=== PATIENT | female | born 1930 | race Caucasian/White ===

== ENCOUNTER 2016-09-26 16:30 | Emergency (ER) | payer MEDICARE, OTHER ==
[2016-09-26 16:47] VITALS: BP 145/56
--- NOTE | 2016-09-26 17:37 | EDM.PDOC ---
ED HPI GENERAL MEDICAL PROBLEM - General Chief Complaint: Respiratory Problem Stated Complaint: BACK AND CHEST PAIN/FEVER/COUGH Time Seen by Provider: 09/26/16 17:07 Source of Information: Reports: Patient, Family (Daughter), RN Notes Reviewed History Limitations: Reports: No Limitations - History of Present Illness INITIAL COMMENTS - FREE TEXT/NARRATIVE: The patient states that she was diagnosed with "walking pneumonia" one week ago , 09/19/2016, per Dr. Bradshaw. Medical records from [facility] indicate that the patient at that time reported a 6 week history of cough productive of yellow-green sputum, worse at night, that caused some rib pain while coughing. She denied fever, chills, and shortness of breath. No wheezing. She had normal oral intake. Rales were heard in the left middle lung field. It does not appear that the a chest radiograph or bloodwork was performed. The patient was diagnosed with atypical pneumonia, and prescribed a Z-Keshav, which the patient states that she took through completion. The patient states that her symptoms initially improved, however, 2 nights ago she felt lightheaded when she sat up, and now complains of a slight dry cough. She has felt hot all day, but has not had a fever or chills. No dyspnea. No nausea or vomiting. The patient states that she has had similar symptoms numerous times in the past. - Related Data Allergies Allergy/AdvReac Type Severity Reaction Status Date / Time Penicillins Allergy Rash Verified 09/26/16 16:47 Home Meds: Home Meds Benzonatate 1 tab PO DAILY PRN 09/26/16 [History] Dextromethorphan Polistirex [Delsym] 1 dose PO ASDIRECTED PRN 09/26/16 [History] HCTZ/Triamterene [Dyazide 25-37.5 MG] 1 tab PO DAILY 09/26/16 [History] Ursodiol 500 mg PO BID 09/26/16 [History] Past Medical History Cardiovascular History: Reports: Hypertension Gastrointestinal History: Reports: Cirrhosis (Primary biliary), GERD Genitourinary History: Reports: Urinary Incontinence (Stress-related), Other ( See Below) (Polycystic kidney disease) Musculoskeletal History: Reports: Osteoarthritis (Bilateral knees) Psychiatric History: Reports: Other (See Below) (Fibromyalgia) Immunologic History: Reports: Other (See Below) (Temporal arteritis) - Past Surgical History HEENT Surgical History: Reports: Cataract Surgery (left), Oral Surgery ([place] teeth extraction), Tonsillectomy Cardiovascular Surgical History: Reports: Other (See Below) (Temporal artery biopsy) GI Surgical History: Reports: Cholecystectomy Social & Family History - Tobacco Use Smoking Status *Q: Never Smoker Second Hand Smoke Exposure: No - Caffeine Use Caffeine Use: Reports: Coffee - Alcohol Use Alcohol Use History: Yes Alcohol Use Frequency: Rarely - Recreational Drug Use Recreational Drug Use: No - Living Situation & Occupation Living situation: Reports: , Alone Occupation: Retired ED ROS GENERAL - Review of Systems Review Of Systems: See Below Constitutional: Reports: No Symptoms HEENT: Reports: No Symptoms Respiratory: Reports: Cough, Sputum (yellow-green). Denies: Shortness of Breath , Wheezing Cardiovascular: Reports: No Symptoms Endocrine: Reports: No Symptoms GI/Abdominal: Reports: No Symptoms : Reports: No Symptoms Musculoskeletal: Reports: No Symptoms Skin: Reports: No Symptoms Neurological: Reports: Dizziness Psychiatric: Reports: No Symptoms Hematologic/Lymphatic: Reports: No Symptoms Immunologic: Reports: No Symptoms ED EXAM, GENERAL - Physical Exam Exam: See Below Exam Limited By: No Limitations General Appearance: Alert, WD/WN, No Apparent Distress Eye Exam: Bilateral Eye: Normal Inspection Ears: Normal External Exam, Hearing Grossly Normal Nose: Normal Inspection, No Blood Throat/Mouth: Normal Inspection, Normal Lips, Normal Voice, No Airway Compromise Head: Atraumatic, Normocephalic Neck: Normal Inspection, Full Range of Motion Respiratory/Chest: No Respiratory Distress, Lungs Clear, Normal Breath Sounds, No Accessory Muscle Use Cardiovascular: Normal Peripheral Pulses, Regular Rate, Rhythm, No Gallop, No JVD, No Murmur, No Rub Peripheral Pulses: 4+: Radial (L), Radial (R) GI/Abdominal: Normal Bowel Sounds, Soft, Non-Tender, No Organomegaly, No Distention, No Abnormal Bruit, No Mass (Female) Exam: Deferred Rectal (Female) Exam: Deferred Back Exam: Normal Inspection, Full Range of Motion, NT Extremities: Normal Inspection, Normal Range of Motion, Non-Tender, Normal Capillary Refill, No Pedal Edema Neurological: Alert, Oriented, Normal Cognition, No Motor/Sensory Deficits Psychiatric: Normal Affect Skin Exam: Warm, Dry, Intact, Normal Color, No Rash Lymphatic: No Adenopathy EKG INTERPRETATION EKG Date: 09/26/16 Time: 16:49 Rhythm: NSR Rate (Beats/Min): 67 [place]: Normal P-Wave: Present QRS: Wide (likely incomplete RBBB) ST-T: Normal QT: Normal Comparison: NA - No Prior EKG Course - Vital Signs Last Recorded V/S: Last Vital Signs Temp 37.1 C 09/26/16 16:42 Pulse 69 09/26/16 16:42 Resp 16 09/26/16 16:42 BP 145/56 H 09/26/16 16:42 Pulse Ox 100 09/26/16 16:42 Orthostatic Blood Pressure [ 153/62 Standing] Orthostatic Blood Pressure [ 169/54 Sitting] Orthostatic Blood Pressure [ 156/53 Supine] - Orders/Labs/Meds Orders: Active Orders 24 hr Category Date Time Status EKG Documentation Completion [RC] STAT Care 09/26/16 16:41 Active Orthostatic Vital Signs [RC] STAT Care 09/26/16 17:30 Active Chest 2V [CR] Stat Exams 09/26/16 17:29 Taken Labs: Laboratory Tests 09/26/16 09/26/16 09/26/16 Range/Units 17:45 17:45 17:45 WBC 6.73 (3.98-10.04) K/mm3 RBC 3.87 L (3.98-5.22) M/mm3 Hgb 12.1 (11.2-15.7) gm/L Hct 36.2 (34.1-44.9) % MCV 93.5 (79.4-94.8) fl MCH 31.3 (25.6-32.2) pg MCHC 33.4 (32.2-35.5) g/dl RDW Std Deviation 42.6 (36.4-46.3) fL Plt Count 209 (182-369) K/mm3 MPV 10.6 (9.4-12.3) fl Neutrophils % (Manual) 67 H (40-60) % Band Neutrophils % 0 (0-10) % Lymphocytes % (Manual) 26 (20-40) % Atypical Lymphs % 0 % Monocytes % (Manual) 4 (2-10) % Eosinophils % (Manual) 2 (0.7-5.8) % Basophils % (Manual) 1 (0.1-1.2) Platelet Estimate Adequate Plt Morphology Comment Normal RBC Morph Comment Normal PT 10.7 (8.0-13.0) SECONDS INR 0.98 APTT 26 (22-36) SECONDS D-Dimer, Quantitative 0.52 (0.19-0.59) mg/L Sodium 141 (136-145) mEq/L Potassium 3.4 L (3.5-5.1) mEq/L Chloride 106 (98-107) mEq/L Carbon Dioxide 26 (21-32) mEq/L Anion Gap 12.4 (5-15) BUN 17 (7-18) mg/dL Creatinine 1.1 H (0.55-1.02) mg/dL Est Cr Clr Drug Dosing 26.37 mL/min Estimated GFR (MDRD) 47 (>60) mL/min BUN/Creatinine Ratio 15.5 (14-18) Glucose 117 H (83-115) mg/dL Calcium 8.8 (8.5-10.1) mg/dL Total Bilirubin 0.4 (0.2-1.0) mg/dL AST 31 (15-37) U/L ALT 23 (14-59) U/L Alkaline Phosphatase 122 H (46-116) U/L Troponin I < 0.017 (0.00-0.056) ng/mL Total Protein 6.3 L (6.4-8.2) g/dl Albumin 3.3 L (3.4-5.0) g/dl Globulin 3.0 gm/dL Albumin/Globulin Ratio 1.1 (1-2) Urine Color (Yellow) Urine Appearance (Clear) Urine pH (5.0-8.0) Ur Specific [place] (1.005-1.030) Urine Protein (Negative) Urine Glucose (UA) (Negative) Urine Ketones (Negative) Urine Occult Blood (Negative) Urine Nitrite (Negative) Urine Bilirubin (Negative) Urine Urobilinogen (0.2-1.0) Ur Leukocyte Esterase (Negative) Urine RBC (0-5) /hpf Urine WBC (0-5) /hpf Ur Epithelial Cells (0-5) /hpf Urine Bacteria (FEW) /hpf Urine Mucus (FEW) /hpf 09/26/ Range/Units 18:10 WBC (3.98-10.04) K/mm3 RBC (3.98-5.22) M/mm3 Hgb (11.2-15.7) gm/L Hct (34.1-44.9) % MCV (79.4-94.8) fl MCH (25.6-32.2) pg MCHC (32.2-35.5) g/dl RDW Std Deviation (36.4-46.3) fL Plt Count (182-369) K/mm3 MPV (9.4-12.3) fl Neutrophils % (Manual) (40-60) % Band Neutrophils % (0-10) % Lymphocytes % (Manual) (20-40) % Atypical Lymphs % % Monocytes % (Manual) (2-10) % Eosinophils % (Manual) (0.7-5.8) % Basophils % (Manual) (0.1-1.2) Platelet Estimate Plt Morphology Comment RBC Morph Comment PT (8.0-13.0) SECONDS INR APTT (22-36) SECONDS D-Dimer, Quantitative (0.19-0.59) mg/L Sodium (136-145) mEq/L Potassium (3.5-5.1) mEq/L Chloride (98-107) mEq/L Carbon Dioxide (21-32) mEq/L Anion Gap (5-15) BUN (7-18) mg/dL Creatinine (0.55-1.02) mg/dL Est Cr Clr Drug Dosing mL/min Estimated GFR (MDRD) (>60) mL/min BUN/Creatinine Ratio (14-18) Glucose (83-115) mg/dL Calcium (8.5-10.1) mg/dL Total Bilirubin (0.2-1.0) mg/dL AST (15-37) U/L ALT (14-59) U/L Alkaline Phosphatase (46-116) U/L Troponin I (0.00-0.056) ng/mL Total Protein (6.4-8.2) g/dl Albumin (3.4-5.0) g/dl Globulin gm/dL Albumin/Globulin Ratio (1-2) Urine Color Yellow (Yellow) Urine Appearance Clear (Clear) Urine pH 6.0 (5.0-8.0) Ur Specific [place] 1.010 (1.005-1.030) Urine Protein Negative (Negative) Urine Glucose (UA) Negative (Negative) Urine Ketones Negative (Negative) Urine Occult Blood Negative (Negative) Urine Nitrite Negative (Negative) Urine Bilirubin Negative (Negative) Urine Urobilinogen 0.2 (0.2-1.0) Ur Leukocyte Esterase Negative (Negative) Urine RBC Not seen (0-5) /hpf Urine WBC 0-5 (0-5) /hpf Ur Epithelial Cells 0-5 (0-5) /hpf Urine Bacteria Not seen (FEW) /hpf Urine Mucus Not seen (FEW) /hpf - Re-Assessments/Exams Free Text/Narrative Re-Assessment/Exam: 09/26/16 18:48 The patient is not orthostatic. 09/26/16 18:49 Two-view chest radiograph reviewed. Cardiac silhouette is within normal limits. No pulmonary vascular congestion. No pleural effusions. No focal infiltrate. No pneumothorax. Hyperinflation with bilateral dramatic flattening , consistent with COPD, noted. Formal read per the Radiologist pending. 09/26/16 19:09 Test results discussed with the patient and her daughter. Today's workup is unremarkable. No infiltrate on the patient's chest radiograph and states that she does not currently have pneumonia, and since pneumonia infiltrates typically take about a month to resolve, I suspect that she did not have pneumonia a week ago, either. The patient is not orthostatic. She does not have a pulmonary embolus. No recent cardiac event. Because of her symptoms, including her lightheadedness and flushing is unclear. I'm recommending that she follow-up with Dr. Bradshaw. Departure - Departure Time of Disposition: 19:10 Disposition: Home, Self-Care 01 Condition: Good Clinical Impression: Lightheadedness, Malaise - Discharge Information Referrals: Tucker Leblanc MD [Primary Care Provider] - Forms: ED Department Discharge Additional Instructions: You were seen in the emergency room for lightheadedness, a slight cough, and flushing. Workup in the ER included blood work, a urinalysis, an ECG, a chest x-ray, and positional blood pressure checks. Your entire workup was unremarkable. You do not have pneumonia, a blood clot in your lungs, a recent heart attack, or urinary tract infection. The cause of your symptoms is not clear. You may have a viral illness. We recommend you follow-up with your PCP, Dr. Bradshaw, at the next available appointment. If any other problems, please do not hesitate to return to the ER. - My Orders Last 24 Hours: My Active Orders 09/26/16 16:41 EKG Documentation Completion [RC] STAT 09/26/16 17:29 Chest 2V [CR] Stat 09/26/16 17:30 Orthostatic Vital Signs [RC] STAT - Assessment/Plan Last 24 Hours: My Active Orders 09/26/16 16:41 EKG Documentation Completion [RC] STAT 09/26/16 17:29 Chest 2V [CR] Stat 09/26/16 17:30 Orthostatic Vital Signs [RC] STAT
--- NOTE | 2016-09-27 07:02 | CR ---
Chest: Two views of the chest were obtained. Comparison: Previous chest x-ray of 07/30/08. Heart size is normal. Tortuous thoracic aorta is seen. 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 Lungs are clear with no acute infiltrates. Bony structures are osteopenic. Scoliosis is noted within the spine. Impression: 1. Incidental findings. Nothing acute is identified on two-view chest x-ray. Diagnostic code #2
== END 2016-09-26 19:26 | disposition home or self-care (01) ==
LOC: JD.ED 16:30
DX: R42 Dizziness and giddiness (principal); R53.81 Other malaise; I10 Essential (primary) hypertension; K21.9 Gastro-esophageal reflux disease without esophagitis; M19.90 Unspecified osteoarthritis, unspecified site; Z98.49 Cataract extraction status, unspecified eye; Z90.49 Acquired absence of other specified parts of digestive tract; Z98.890 Other specified postprocedural states; Z79.899 Other long term (current) drug therapy; Z88.0 Allergy status to penicillin
CPT/HCPCS: 36415; 71020; 71020-26; 80053; 81001; 84484; 85025; 85379; 85610; 85730; 93005; 99284; 99284-25

== ENCOUNTER 2019-04-06 19:38 | Emergency (ER) | payer MEDICARE, OTHER | END 2019-04-06 22:14 | disposition left against medical advice (07) | LOC: JD.ED 19:38 | DX: Z53.21 Procedure and treatment not carried out due to patient leaving prior to being seen by health care provider (principal) ==